=== PATIENT | female | born 1985 | race Caucasian/White ===

== ENCOUNTER 2017-03-11 13:45 | Emergency (ER) | payer OTHER | END 2017-03-11 15:35 | disposition home or self-care (01) | LOC: ER 13:45 | DX: S52.022A Displaced fracture of olecranon process without intraarticular extension of left ulna, initial encounter for closed fracture (principal); G40.909 Epilepsy, unspecified, not intractable, without status epilepticus; Z79.899 Other long term (current) drug therapy; Z88.1 Allergy status to other antibiotic agents; Z88.8 Allergy status to other drugs, medicaments and biological substances; Z23 Encounter for immunization; W19.XXXA Unspecified fall, initial encounter; Y92.009 Unspecified place in unspecified non-institutional (private) residence as the place of occurrence of the external cause | CPT/HCPCS: 90471 ==